=== PATIENT | female | born 1945 | race Caucasian/White ===

== ENCOUNTER → 2018-07-26 | Outpatient (CLI) | payer MEDICARE, OTHER ==
[~2018-07-26] MED LIST: AMLO5TAB66 PO; ASPI-1198 PO; EZET10 PO; LOSA100T2 PO; METF-446 PO; METO100XL PO; NITR0.4T50 SL; PIOG45TA4 PO; ROSU20 PO
== END | disposition home or self-care (01) ==
LOC: RADPV 10:29
PROVIDERS: ATTEND Podiatrist Foot & Ankle Surgery
DX: M19.071 Primary osteoarthritis, right ankle and foot (principal)